=== PATIENT | female | born 1985 | race Caucasian/White ===

== ENCOUNTER 2021-01-27 13:00 | Emergency (ER) | payer OTHER, SELFPAY ==
[2021-01-27 13:01] VITALS: BP 127/81; PULSE 79; RESP 16; TEMP 36.7; O2SAT 97; BMI 20.9
--- NOTE | 2021-01-27 13:55 | XR_ITS ---
PROCEDURE: XR SHOULDER LT MIN 2V CLINICAL INDICATION: shoulder pain COMPARISON: No exams were available for comparison FINDINGS: There is a lucency along the superior margin and midshaft of the left clavicle which may be due to a prominent nutrient foramen versus a nondisplaced fracture. Please correlate as patient's area of pain and tenderness. AC joint and glenohumeral joint have an unremarkable appearance. The joint spaces are well-preserved. No significant degenerative/arthritic changes. No erosive changes evident. Other findings:None. IMPRESSION: Lucency of the midshaft of the clavicle which may be due to an atypical nutrient foramen or nondisplaced fracture. Dictated by: Juan Stacy MD 01/27/2021 15:39 Juan Stacy MD in [place] 01/27/2021 15:39
--- NOTE | 2021-01-27 13:55 | XR_ITS ---
PROCEDURE: XR CLAVICLE LT CLINICAL INDICATION: pain distal clavicle COMPARISON: No exams were available for comparison FINDINGS: An atypical lucency is present overlying the mid shaft of the left clavicle. Cannot exclude the possibility of a nondisplaced fracture. An atypical nutrient foramina is also consideration. Otherwise negative. IMPRESSION: Lucency of the midshaft of the clavicle along the superior aspect which could be due to a nondisplaced fracture or an atypical nutrient foramen. Please correlate as the patient's area of pain and tenderness Dictated by: Juan Stacy MD 01/27/2021 15:37 Juan Stacy MD in [place] 01/27/2021 15:37
--- NOTE | 2021-01-27 14:01 | [facility].EDEXTP ---
ED Disposition Clinical Impression: Fracture of clavicle Qualifiers: Encounter type: initial encounter Clavicle location: shaft Fracture type: closed Fracture alignment: nondisplaced Laterality: left Qualified Code(s): S42.025A - Nondisplaced fracture of shaft of left clavicle, initial encounter for closed fracture Disposition: Home, Self-Care Condition on Discharge: Good Instructions: DI for Clavicle Fracture-Adult Additional Instructions: Follow-up with orthopedics return to the ED for any new or worsening symptoms. No weightbearing of the left upper extremity. Referrals: Provider,MD Nataly [Primary Care Provider] - José Miguel Branham MD [Staff Physician] - - Critical Care Critical Care Time: No Attestation: On 01/27/21, the high probability of a clinically significant, sudden or life threatening deterioration of the following system(s) required my full and direct attention, intervention and personal management. The time I documented below is in addition to time spent performing reported procedures but includes the following listed in this critical care notation. Medical Decision Making - Medical Records Medical records reviewed: Yes: I reviewed the patient's medical records. - Yoseph Inquiry Pt receiving controlled substance: No Vital Signs: 01/27/21 13:01 Temperature 98.1 F Temperature Source Oral Pulse Rate [Right] 79 Respiratory Rate 16 Blood Pressure [Right Arm] 127/81 Blood Pressure Mean [Right Arm] 96 02 Sat by Pulse Oximetry 97 Medical Decision Narrative: 35-year-old female with pain after a lifting event. X-rays of the clavicle and shoulder demonstrate a cortical lucency over the mid clavicle that correlates with tenderness. It appears that she has fractured the clavicle and will be placed in a sling given orthopedic follow-up and lifting restriction. Extremity Problem HPI - General Chief complaint: Extremity Injury, Upper Stated complaint: muscle pain lt shoulder Time Seen by Provider: 01/27/21 13:40 Mode of Arrival: Family Vehicle Limitations: No Limitations Description of Symptoms (Recalled from ER Triage Doc. by RN): Patient c/o left clavicle pain after lifting a tote, from the ground to the waist level. Paitient stated in ED triage, I was at work and picked a tote up and felt a pop in my left clavicle area Patient denies any other pain. - History of Present Illness HPI Narrative: 35-year-old female who was lifting at work and felt a pop over her left upper chest with sharp pain that is now 4 out of 10. Worse with abduction of the arm past 45 degrees. Patient denies fall or trauma. Happened at approximately 11 AM. - Related Data Allergies Allergy/AdvReac Type Severity Reaction Status Date / Time No Known Allergies Allergy Verified 01/27/21 13:26 [facility] History - Hepatitis A Screen Drug use history?: No High risk sexual behaviors?: No History of sexually transmitted infection?: No Currently employed?: No Childcare worker?: No Do you have indoor plumbing?: Yes Do you have electricity?: Yes Attestation statement:: This patient has been screened for Hepatitis A risk factors. I have reviewed the patient's past medical history: Yes Comment: reviewed and noncontributory ROS Obtained: Yes Systems reviewed as appropriate & no additional complaints Physical Exam - General General appearance: alert, in no apparent distress - Head Head exam: atraumatic - Eye Eye exam: Present: EOMI - ENT ENT exam: Present: mucous membranes moist - Neck Neck exam: Present: trachea midline - Chest Chest inspection: Present: tenderness (left mid to distal clavicle. ) - Respiratory Respiratory exam: Absent: respiratory distress - Cardiovascular Cardiovascular exam: Present: regular rate - Abdominal Exam Abdominal exam: Absent: distention - Extremities Exam Extremities exam: Present: normal inspection - Neurological Exam Neurological exam: Present: alert,
[2021-01-27 16:14] VITALS: BP 141/71; PULSE 71; RESP 18; TEMP 36.7; O2SAT 98
== END 2021-01-27 16:10 | disposition home or self-care (01) ==
PROVIDERS: Emergency Provider Student in an Organized Health Care Education/Training Program
DX: S42.025A Nondisplaced fracture of shaft of left clavicle, initial encounter for closed fracture (principal); X50.0XXA Overexertion from strenuous movement or load, initial encounter; Y92.69 Other specified industrial and construction area as the place of occurrence of the external cause; Y99.0 Civilian activity done for income or pay
CPT/HCPCS: 73000; 73030; 99283